=== PATIENT | female | born 1990 | race Caucasian/White ===

== ENCOUNTER 2019-04-04 12:57 | Outpatient (CLI) | payer BC ==
[2019-04-04] MEDS ORDERED: IOHEXOL 50 ML IV ONE (13:17)
== END 2019-04-04 20:59 | disposition home or self-care (01) ==
LOC: SRD 12:57
PROVIDERS: ATTEND Specialist
DX: Q51.3 Bicornate uterus (principal); N97.9 Female infertility, unspecified
CPT/HCPCS: 58340; 74740; C1751; Q9967

== ENCOUNTER 2021-03-06 11:34 | Day surgery (SDC) | payer BC, SELFPAY ==
[~2021-03-06] VITALS: Ht 162.6 cm; Wt 47.2 kg
[2021-03-06] MEDS ORDERED: MIDAZOLAM HCL 5 MG/5 ML VIAL IVP ONE (13:47)
[2021-03-06] MEDS ORDERED: LR 1,000 ML IV.SOLN IV ONE (13:47)
[2021-03-06] MEDS ORDERED: SEVOFLURANE 15 MIN GAS INH ONE (13:47)
[2021-03-06] MEDS ORDERED: fentaNYL CITRATE/PF 100 MCG/2 ML AMP IVP ONE (13:47)
[2021-03-06] MEDS ORDERED: NS IRRIG SOLN 1000 ML IR ONE (13:47)
[2021-03-06] MEDS ORDERED: CEFAZOLIN 2 GM IVPB PREMIX 50 ML IV ONE (13:47)
[2021-03-06] MEDS ORDERED: OXYTOCIN/0.9 % SODIUM CHLORIDE 20 UNITS/1,000 ML BAG IV ONE (13:47)
[2021-03-06] MEDS ORDERED: METOCLOPRAMIDE HCL 10 MG/2 ML VIAL IVP ONE (13:47)
[2021-03-06] MEDS ORDERED: PROPOFOL 200MG/ 20ML VIAL (DIPRIVAN) IV ONE (13:47)
[2021-03-06] MEDS ORDERED: DEXAMETHASONE SOD PHOSPHATE 4 MG/ML VIAL IVP ONE (13:47)
[2021-03-06] MEDS ORDERED: HYDROmorphone 1 MG/ML INJ. CARTRIDGE IVP PRN (14:00)
[2021-03-06] MEDS ORDERED: MEPERIDINE HCL/PF 25 MG/ML DISP.SYRIN IVP PRN (14:00)
[2021-03-06] MEDS ORDERED: LR 1,000 ML IV SCH (14:00)
[2021-03-06] MEDS ORDERED: HYDROmorphone 2 MG/ML VIAL IVP PRN (14:00)
[2021-03-06] MEDS ORDERED: OXYCODONE/ACETAMINOPHEN 5-325 TABLET PO PRN ×2 (14:15)
[2021-03-06] MEDS ORDERED: ONDANSETRON HCL 4 MG/2 ML VIAL IVP PRN (14:15)
[2021-03-06] MEDS ORDERED: HYDROcodone/ACETAMIN 5-325 MG TAB (NORCO/ VICODIN) PO PRN (14:15)
[2021-03-06 15:15] VITALS: BP_SYST 105
== END 2021-03-06 16:25 | disposition home or self-care (01) ==
LOC: SDS 11:34 → SMU 11:36 → SDS 16:25
PROVIDERS: ATTEND Specialist
DX: O03.4 Incomplete spontaneous abortion without complication (principal); Z20.822 Contact with and (suspected) exposure to COVID-19; Z3A.01 Less than 8 weeks gestation of pregnancy
CPT/HCPCS: 36415; 59812; 86886; 86900; 86901; 88305; U0003; J0690; J1100; J2250; J2590; J2704; J2765; J3010; J7120